=== PATIENT | female | born 1980 | race Hispanic/Latino ===

== ENCOUNTER → 2019-08-21 | Outpatient (CLI) | payer BC ==
--- NOTE | 2019-08-21 10:04 | Diagnostic Imaging Report ---
MRI BRAIN WO HISTORY: Headache COMPARISON: None. TECHNIQUE: Sagittal T2, axial T2, axial T1, axial T2/FLAIR, axial gradient echo (or susceptibility weighted), coronal T2/FLAIR, and axial diffusion weighted MR images of the brain were obtained without contrast. Motion artifacts obscure some details. DISCUSSION: Scalp/bone marrow: Unremarkable. Brain sulci: Appropriate for patient's age. Ventricles: Normal in size and configuration. No hydrocephalus. Extra-axial spaces: No masses or fluid collections. Parenchyma: A few nonspecific small T2/FLAIR hyperintense foci are seen in the bifrontal deep white matter; there is no significant mass effect. Otherwise, no mass, hemorrhage, or acute vascular insults. Vessels: Normal flow voids in major arteries and veins. Sellar/Suprasellar region: No abnormalities. Craniocervical junction: No abnormalities. Incidental findings: None. IMPRESSION: 1. Few nonspecific small T2/FLAIR hyperintense foci in the bifrontal deep white matter may be migraine-related changes. 2. No other intracranial abnormalities. Signed by: Dr. Antonio Loja M.D. on 08/21/2019 10:01 AM
== END ==
LOC: MRI 08:50
PROVIDERS: ATTEND Family Medicine
DX: R51 Headache (principal)
CPT/HCPCS: 70551